=== PATIENT | female | born 1995 | race Caucasian/White ===

== ENCOUNTER → 2020-03-13 | Outpatient (CLI) | payer OTHER, BC | LOC: LAB 10:20 | PROVIDERS: ATTEND Obstetrics & Gynecology | DX: Z32.01 Encounter for pregnancy test, result positive (principal) | CPT/HCPCS: 36415; 84702 ==

== ENCOUNTER → 2020-03-15 | Outpatient (CLI) | payer OTHER, BC | LOC: LAB 07:16 | PROVIDERS: ATTEND Obstetrics & Gynecology | DX: Z32.01 Encounter for pregnancy test, result positive (principal) | CPT/HCPCS: 36415; 84702 ==

== ENCOUNTER 2020-05-08 15:22 | Emergency (ER) | payer BC, OTHER ==
--- NOTE | 2020-05-08 16:09 | ER Document Report ---
ED GI/ - General Stated Complaint: WEAKNESS Time Seen by Provider: 05/08/20 16:07 Notes: CHIEF COMPLAINT: Vaginal bleeding in HPI: 24-year-old female presenting for vaginal bleeding in . Began having some vaginal bleeding and pelvic cramping 3 days ago. Cramping resolved after the first day and bleeding has slowly decreased to the point that she feels like there is only minimal spotting now. Patient is approximately 12 weeks by in vitro fertilization. States she could not see her SURVEILLANCE SENSOR OPERATOR for another month. Went to [facility] 2 days ago states that they did a bedside ultrasound but were not able to give her any definitive information. Has not had an official ultrasound with this to this point. Patient denies fever nausea vomiting. Patient states that the blood was dark brown. ROS: See HPI - all other systems were reviewed and are otherwise negative Constitutional: no fever or recent illness Eyes: no drainage, no blurred vision ENT: no runny nose, no sore throat Cardiovascular: no chest pain Resp: no SOB, no cough GI: no vomiting, no diarrhea : no dysuria, no vaginal discharge, positive vaginal bleeding Integumentary: no rash Allergy: no hives Musculoskeletal: no extremity pain or swelling Neurological: no numbness/tingling, no weakness MEDICATIONS: I agree with the patient medications as charted by the RN. ALLERGIES: I agree with the allergies as charted by the RN. PAST MEDICAL HISTORY/PAST SURGICAL HISTORY: Reviewed and agree as charted by RN. SOCIAL HISTORY: Reviewed and agree as charted by RN. FAMILY HISTORY: No significant familial comorbid conditions directly related to patient complaint EXAM: Reviewed vital signs as charted by RN. CONSTITUTIONAL: Alert and oriented and responds appropriately to questions. Well-appearing; well-nourished HEAD: Normocephalic; atraumatic EYES: Conjunctivae clear, sclerae non-icteric ENT: normal nose; no rhinorrhea; moist mucous membranes; pharynx without lesions noted NECK: Supple without meningismus CARD: Capillary refill less than 3 seconds; symmetric distal pulses RESP: Normal chest excursion without splinting or tachypnea; breath sounds clear and equal bilaterally; no wheezes, no rhonchi, no rales, ABD/GI: Normal bowel sounds; non-distended; soft, non-tender, no rebound, no guarding; no palpable organomegaly or masses : Patient declined pelvic exam at this time preferring to follow-up with her SURVEILLANCE SENSOR OPERATOR. BACK: The back appears normal and is non-tender to palpation, there is no CVA tenderness EXT: Normal ROM in all joints; no cyanosis, no effusions, no edema SKIN: Normal color for age and race; warm; dry; good turgor NEURO: Moves all extremities equally; Motor and sensory function intact PSYCH: The patient's mood and manner are appropriate. Grooming and personal hygiene are appropriate. MDM: 24-year-old female presenting for vaginal bleeding complaint. Declines lab and pelvic exam at this time. Ultrasound was obtained. She will follow up with her SURVEILLANCE SENSOR OPERATOR. Patient preferred to leave and be called with her results. Past Medical History - Social History Smoking Status: Unknown if Ever Smoked Family History: Reviewed & Not Pertinent Physical Exam - Vital signs Vitals: Temp Pulse Resp BP Pulse Ox 97.8 F 84 20 114/78 100 05/08/20 16:00 05/08/20 16:00 05/08/20 16:05/08/20 16:05/08/20 16:00 Course - Re-evaluation Re-evalutation: 05/08/20 17:33 Ultrasound shows a 12-week 5-day IUP with a heartbeat of 155. There is a moderate subchorionic bleed I did discuss this with the patient. She will follow-up with her SURVEILLANCE SENSOR OPERATOR - Vital Signs Vital signs: Temp Pulse Resp BP Pulse Ox 97.8 F 84 20 114/78 100 05/08/20 16:00 05/08/20 16:00 05/08/20 16:00 05/08/20 16:00 05/08/20 16:00 - Laboratory Results Critical Laboratory Results Reviewed: No Critical Results - Radiology Results Critical Radiology Results Reviewed: No Critical Results Discharge - Discharge Clinical Impression: Vaginal bleeding during Subchorionic bleed Qualifiers: Fetus number: single or unspecified fetus Trimester: first trimester Qualified Code(s): O41.8X10 - Other specified disorders of amniotic fluid and membranes, first trimester, not applicable or unspecified; O46.8X1 - Other antepartum hemorrhage, first trimester Condition: Stable Disposition: HOME, SELF-CARE Additional Instructions: Follow-up with your SURVEILLANCE SENSOR OPERATOR for further evaluation and treatment call for appointment, your ultrasound showed a small subchorionic bleed which is likely causing the symptoms you are having
[2020-05-08 16:15] VITALS: BP 114/78
--- NOTE | 2020-05-08 16:28 | RADIOLOGY REPORT (SQ) ---
EXAM DESCRIPTION: U/S 1TRIMESTER/1GEST W/DOPPLER IMAGES COMPLETED DATE/TIME: 05/08/2020 2:52 pm REASON FOR STUDY: evaluate for source of bleeding; use doppler for ov COMPARISON: None. TECHNIQUE: Transabdominal static and realtime grayscale images acquired of the pelvis. Additional se lected spectral and color Doppler images recorded. All images stored on PACs. bHCG: None available CLINICAL DATES: LMP 02/12/2020 for an estimated gestational age 12 weeks 2 days LIMITATIONS: None. FINDINGS: FETUS: Single Living intrauterine . ULTRASOUND EGA: 12 weeks 5 days based on BPD, femur length, abdominal circumference and head circumfe rence ULTRASOUND JOSE: 11/15/2020 EFW: Not applicable less than 20 weeks. FHR: 155 beats per minute. SURVEY: No visualized anomalies. AMNIOTIC FLUID: Adequate amount. PLACENTA: Anterior and fundal SUBCHORIONIC BLEED: Yes SIZE OF BLEED: Moderate, 3 cm UTERUS: No masses. No anomalies. CERVICAL LENGTH: 3 cm Closed. RIGHT ADNEXA: Not visualized No adnexal free fluid. No adnexal masses. LEFT ADNEXA: Not visualized No adnexal free fluid. No adnexal masses. FREE FLUID: None. OTHER: No other significant finding. IMPRESSION: Single live intrauterine . Moderate subchorionic hemorrhage. EGA 12 weeks 5 days Trimester of : First trimester - 0 to 13 weeks. TECHNICAL DOCUMENTATION: JOB ID: [id number] 2010 [employer]- All Rights Reserved rev Reading location - IP/workstation name: [email or web address]
== END 2020-05-08 16:15 | disposition home or self-care (01) ==
LOC: EEVIPCON 15:22 → ER 15:22
DX: O41.8X10 Other specified disorders of amniotic fluid and membranes, first trimester, not applicable or unspecified (principal); O20.9 Hemorrhage in early pregnancy, unspecified; R53.1 Weakness; Z3A.12 12 weeks gestation of pregnancy
CPT/HCPCS: 76801; 93976; 99284